=== PATIENT | male | born 1960 | race Hispanic/Latino ===

== ENCOUNTER 2017-12-27 10:40 | Day surgery (SDC) | payer OTHER ==
[2017-12-27] MEDS ORDERED: NACL 0.9% 1000 ML 1,000 ML IV SCH (12:00)
[2017-12-27] MEDS ORDERED: WATER FOR IRRIG STERILE IR ONE (14:14)
[2017-12-27] MEDS ORDERED: DIPRIVAN 10 MG/ML IV ONE ×2 (14:15)
[2017-12-27] MEDS ORDERED: XYLOCAINE TOPICAL 2% 5ML ONE (14:15)
[2017-12-27] MEDS ORDERED: ATROPINE ONE (14:43)
[2017-12-27] MEDS ORDERED: ROBINUL ONE (14:43)
--- NOTE | 2017-12-27 14:43 | Anesthesia Consultation ---
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
--- NOTE | 2017-12-27 14:43 | Anesthesia Day of Surgery ---
Anesthesia Day of Surgery - Day of Surgery Patient Examined: Yes Patient H&P Reviewed: Yes Patient is NPO: Yes
--- NOTE | 2017-12-27 14:44 | Operative Report ---
Operative Report Operative Report: Date of procedure: 12/27/2017 Procedure: Colonoscopy. Attending physician: Art Merritt MD Tie Knitter Helper: Art Merritt MD Indication: Patient is a 57-year-old female who presents for screening colonoscopy. A colonoscopy serves to evaluate patient so that treatment may be directed based on the findings. Consent: Informed consent was obtained after advising the patient and family regarding nature of this procedure, its indications, potential benefits as well as possible complications including but not limited to bleeding perforation and adverse reaction to medication, infection as well as other cardiopulmonary complications. An informed written and verbal consent was then obtained after due opportunity was provided for questions and answers. Monitoring: Patient was monitored continuously with pulse oximetry and electrocardiographic recordings as well as blood pressure recordings. Vital signs remained stable throughout this procedure with no untoward events. Preoperative assessment: Patient was assessed immediately prior to this procedure for capacity to tolerate monitored anesthesia care and moderate sedation as well as general anesthesia. Patient's ASA classification is 2, Mallampati class is 2, Hyomental distance is 3. Instrument: [employer] video colonoscope Medications: Propofol given intravenously in divided doses. For details please refer to anesthesia records. Description of procedure: Patient was placed in the left lateral decubitus position after achieving sedation, a digital rectal examination was performed following which the colonoscope was introduced into the anal verge and advanced to the cecum which was identified by the cecal valve, the appendiceal orifice, as well as by the cecal strap and direct transillumination. The colonoscope was subsequently withdrawn with careful inspection of all mucosal surfaces. Patient tolerated this procedure well and was subsequently taken to the recovery room. The following findings were noted. Findings: There were scattered diverticula seen in the sigmoid colon and descending colon. The rest of the colon was normal. On the retroflex view at the anal verge, patient had prominent internal hemorrhoids. Impression:Diverticular disease of the colon. Prominent Internal hemorrhoids. Plan: High-fiber diet. Prn stool softeners as needed. Patient would likely benefit from hemorrhoidal band ligation in the near future. Repeat colonoscopy in 10 years.
--- NOTE | 2017-12-27 14:45 | Discharge Summary ---
Short Stay Discharge Plan Activity: advance as tolerated Weight Bearing Status: Weight Bear as Tolerated Diet: regular Follow up with: VEENA RAZA MD [Primary Care Provider] - 7 Days
[2017-12-27 14:54] VITALS: BP 138/90
== END 2017-12-27 10:41 | disposition home or self-care (01) ==
LOC: GIO 10:40
PROVIDERS: ATTEND Internal Medicine Gastroenterology
DX: K57.32 Diverticulitis of large intestine without perforation or abscess without bleeding (principal); K64.8 Other hemorrhoids; L40.9 Psoriasis, unspecified; H91.90 Unspecified hearing loss, unspecified ear; I48.91 Unspecified atrial fibrillation; G47.30 Sleep apnea, unspecified; M19.90 Unspecified osteoarthritis, unspecified site; Z79.899 Other long term (current) drug therapy; Z99.89 Dependence on other enabling machines and devices; Z87.891 Personal history of nicotine dependence; Z98.890 Other specified postprocedural states; Z80.1 Family history of malignant neoplasm of trachea, bronchus and lung; Z80.3 Family history of malignant neoplasm of breast; Z83.71 Family history of colonic polyps
CPT/HCPCS: 45378; J0461; J2704; J7030